=== PATIENT | female | born 1990 | race Caucasian/White ===

== ENCOUNTER 2016-11-09 14:28 | Emergency (ER) | payer BC, OTHER ==
[~2016-11-09 14:28] MED LIST: ALAGESIC CAPSU1 EACH PO; ARMOUR THYROID PO; COLACE100 MG PO; IBUPROFEN800 M1 PO; IBUPROFEN800 MG PO; LORATADINE; NASAL SPRAY; NATURE-THROID97.5 MG PO; NORCO 10/3251 TAB PO; NORCO 5/3251 TA1 PO; PRENATAL1 EACH PO; PROGESTERONE50 MG/ML IM; SELENIUM200 MC5 PO; SINGULAIR5 MG PO; VITAMIN D35000 UNI3 PO; [UNRECOGNIZED DRUG - OTHER] PO
[2016-11-09 15:13] LABS: BASO % 0.1 % (0-2); EOS % 1.3 % (0-7); EOSINOPHIL ABSOLUTE COUNT 0.1 tho/cmm (0.0-0.7); HCT-HEMATOCRIT 32.7 % (34.0-49.0); HGB-HEMOGLOBIN 11.1 gm/dl (12.0-15.5); IMMATURE GRANULOCYTES ABSOLUTE 0.03 tho/cmm (0-0.03); IMMATURE GRANULOCYTES PERCENT 0.3 % (0-0.3); LYMPH % 11.2 % (20-45); LYMPH ABSOLUTE COUNT 1.1 tho/cmm (0.8-4.5); MCH (MEAN CORPUSCULAR HGB) 28.7 pg (28.0-32.0); MCHC MEAN CORPUSCULAR HGB CONC 33.9 % (32.0-36.0); MCV (MEAN CELL VOLUME) 84.5 fl (82.0-96.0); MEAN PLATELET VOLUME 10.2 cmc (9.4-12.4); MONO % 5.9 % (0-12); MONOCYTE ABSOLUTE COUNT 0.6 tho/cmm (0.0-1.2); NEUTROPHIL ABSOLUTE COUNT 7.7 tho/cmm (1.6-8.0); NEUTROPHIL-AUTOMATED 7.7 tho/cmm (1.6-8.0); NEUTROPHILS % 81.2 % (40-80); PLATELET COUNT 214 tho/cmm (150-450); RED BLOOD COUNT 3.87 mil/cmm (4.00-5.20); RED CELL DISTRIBUTION WIDTH 13.9 % (12.4-16.4); WHITE BLOOD COUNT 9.5 tho/cmm (4.0-10.0)
[2016-11-09 15:26] LABS: ANION GAP 12 mmol/L (0-20); BLOOD UREA NITROGEN 8 mg/dl (6-24); CALCIUM 8.1 mg/dl (8.5-10.5); CARBON DIOXIDE-VENOUS 23 mmol/L (22-32); CHLORIDE 106 mmol/l (96-110); CREATININE 0.53 mg/dl (0.50-1.10); GLUCOSE 71 mg/dL (70-110); POTASSIUM 3.6 mmol/L (3.7-5.1); SODIUM 137 mmol/L (135-145); eGFR VALUE FOR BLACK >90 mL/Min
[2016-11-09 16:48] LABS: URINE BILIRUBIN NEGATIVE (NEG); URINE BLOOD LARGE (NEG); URINE GLUCOSE (UA) NEGATIVE (NEG); URINE KETONE MODERATE (NEG); URINE LEUKOCYTE ESTERASE NEGATIVE (NEG); URINE NITRITE NEGATIVE (NEG); URINE PROTEIN MODERATE (NEG)
[2016-11-09 16:49] LABS: URINE APPEARANCE BLOODY; URINE COLOR RED; URINE RBC FULL FIELD /[HPF] (0-5)
[2016-11-09 16:51] LABS: URINE EPITHELIAL CELLS 0-2 /[HPF] (0-10); URINE WBC 0-2 /[HPF] (0-5)
[2016-11-09] MEDS ORDERED: NORCO 5-325 TA1 EACH PO (17:58)
[2016-12-20] MEDS ORDERED: CLARITIN10 M6 PO (17:20)
== END 2016-11-09 18:24 ==
LOC: EDMED 14:28
PROVIDERS: Emergency Medicine
DX: R10.2 Pelvic and perineal pain (principal); R31.9 Hematuria, unspecified; G43.909 Migraine, unspecified, not intractable, without status migrainosus; Z87.442 Personal history of urinary calculi